=== PATIENT | female | born 1950 | race Caucasian/White ===

== ENCOUNTER → 2017-03-01 | Day surgery (SDC) | payer MEDICARE ==
[~2017-03-01] MED LIST: LACTATED RINGER'S 1000 ML INJ 1,000 ML ONE; PROPOFOL 200 MG/20 ML AMP IV ONE
--- NOTE | 2017-03-01 14:29 | GIPROC ---
[facility] [address] [facility] [place], [address] EGD WITH DILATION PROCEDURE REPORT EXAM DATE: 03/01/2017 PATIENT NAME: Emily Jarquin MR#: [id number] BIRTHDATE: 1950 ATTENDING: Brionna Dwyer MD ORDER #: [id number] PATIENT CARE SECRETARY: Alie Arreola and Jessica Harris COOK FRY STATUS: outpatient INDICATIONS: The patient is a 67 yr old female here for an EGD with dilation due to history of Motta's dysphagia PROCEDURE PERFORMED: EGD w/ biopsy EGD w/ dilation of esophagus via guidewire MEDICATIONS: None and Per Anesthesia. TOPICAL ANESTHETIC: none CONSENT: The patient understands the risks and benefits of the procedure and understands that these risks include, but are not limited to: sedation, allergic reaction, infection, perforation and/or bleeding. Alternative means of evaluation and treatment include, among others: physical exam, x-rays, and/or surgical intervention. The patient elects to proceed with this endoscopic procedure. medical equipment was checked for proper function. Hand hygiene and appropriate measures for infection prevention was taken. After the risks, benefits and alternatives of the procedure were thoroughly explained, Informed consent was verified, confirmed and timeout was successfully executed by the treatment team. The patient was anesthetized with topical anesthesia and the EG-[id number] ([id number]) endoscope was introduced through the mouth and advanced to the second portion of the duodenum. The instrument was slowly withdrawn as the mucosa was fully examined. Gastritis antrum-biopsy duodenitis second portion-biopsy short segment Motta's -biopsy,NBI scope used. Esophageal spasm. Dilation was performed at gastroesophageal junction. DILATOR: SIZE(S): RESISTANCE: HEME: APPEARANCE: Dilator: Savary over guidewire Size(s): 14 COMMENT: Retroflexed views revealed a Camryn-Álvarez tear and Retroflexed views revealed ADVERSE EVENTS: There were no complications. IMPRESSIONS: 1. Gastritis antrum-biopsy duodenitis second portion-biopsy short segment Motta's -biopsy,NBI scope used 2. Retroflexed views revealed a Camryn-Álvarez tear 3. Retroflexed views revealed RECOMMENDATIONS: 1. Await biopsy results. Biopsy results will not be ready for 7-10 days. If you don't hear from us in two weeks, call our office for biopsy results. 2. Anti-reflux regimen 3. Continue PPI 4. Avoid NSAIDS REPEAT EXAM: Return 2 years EGD Brionna Dwyer MD eSigned: Brionna Dwyer MD 03/01/2017 2:29 PM cc: PATIENT NAME: BrittonEmily MR#: [id number]
== END | disposition home or self-care (01) ==
LOC: ESDC 11:50
PROVIDERS: ATTEND Internal Medicine Gastroenterology
DX: K22.70 Barrett's esophagus without dysplasia (principal); R13.10 Dysphagia, unspecified; K29.70 Gastritis, unspecified, without bleeding; K29.80 Duodenitis without bleeding
CPT/HCPCS: 00731; 43239; 43248; 88305; 88312; J3010; J7120